=== PATIENT | male | born 1970 | race Hispanic/Latino ===

== ENCOUNTER 2020-05-24 10:50 | Emergency (ER) | payer OTHER, SELFPAY ==
[2020-05-24] MEDS ORDERED: Lidocaine 1% PF 5 ML VIAL ONE ×3 (13:00→13:20)
[2020-05-24] MEDS ORDERED: Boostrix 0.5 ML (Tdap) VIAL ONE (13:16)
[2020-05-24] MEDS ORDERED: cefTRIAXone\\ROCEPHIN 1 GM VIAL ONE (13:16)
[2020-05-24] MEDS ORDERED: Bacitracin 1 PK ONE (13:31)
== END 2020-05-24 13:55 | disposition home or self-care (01) ==
LOC: ERS 10:50
DX: S56.422A Laceration of extensor muscle, fascia and tendon of left index finger at forearm level, initial encounter (principal); E78.5 Hyperlipidemia, unspecified; E78.00 Pure hypercholesterolemia, unspecified; W26.9XXA Contact with unspecified sharp object(s), initial encounter
CPT/HCPCS: 12001; 90471; 90715; 96372; J0696